=== PATIENT | male | born 1980 | race Caucasian/White ===

== ENCOUNTER 2022-10-02 08:18 | Day surgery (SDC) | payer OTHER ==
[2022-10-02] VITALS (10 sets, daily range): BP systolic 94–120; BP diastolic 63–82; PULSE 47–56; TEMP 98.3
[~2022-10-02] VITALS: Ht 177.8 cm; Wt 93.4 kg
[2022-10-02] MEDS ORDERED: TOPROL XL 25MG25 MG PO (08:41)
[2022-10-02] MEDS ORDERED: ASPIRIN E.C. 8181 MG PO (08:41)
[2022-10-02] MEDS ORDERED: PRIL40 PO (08:41)
[2022-10-02 09:02] LABS: HEMATOCRIT 45.4 % (42.0-52.0); HEMOGLOBIN 15.8 g/dl (13.5-18.0); MEAN CELL VOLUME 87 fl (80.0-100.0); MEAN CORPUSCULAR HEMOGLOBIN 30 pg (27-31); MEAN CORPUSCULAR HGB CONC 35 g/dl (33.0-37.0); MEAN PLATELET VOLUME 9.1 fl (7.4-10.4); PLATELET COUNT 264 K/mm3 (130-400); RED BLOOD COUNT 5.25 M/mm3 (4.20-5.60); REDCELL DISTRIBUTION WIDTH-CV 12.6 % (11.5-14.5)
[2022-10-02 09:11] LABS: PROTHROMBIN TIME 11.4 SECONDS (9.7-12.8)
[2022-10-02 09:14] LABS: PARTIAL THROMBOPLASTIN TIME 28.6 SECONDS (26.0-37.0)
[2022-10-02 09:15] LABS: CALCIUM 9.4 mg/dL (8.4-10.2); CREATININE, serum 1.07 mg/dL (0.72-1.25); POTASSIUM 4.1 mmol/L (3.5-4.5)
--- NOTE | 2022-10-02 10:02 | NUR ---
SEE MERGE FOR ALL PIPE LINE WALKER, VITALS, AND INTERVENTIONS.
--- NOTE | 2022-10-02 12:30 | NUR ---
Pt c/o headache. Lights dimmed for comfort. 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
--- NOTE | 2022-10-02 13:33 | NUR ---
DC instructions reviewed with pt and . Both express understanding. Air was removed from TR band in 2 ml increments with no bleeding or complication. Rt radial puncture site dressed with foled 2x2 and bandaid. IV DC'd, site wrapped with coban. Pt is stable on feet to restroom. He ultimatley refused PRN tylenol, stating he will take some at home as headache is tolerable. He has tolerated PO without issue. He will be assisted out to 's car by wheelchair.
== END 2022-10-02 13:40 | disposition home or self-care (01) ==
LOC: COL.CAR 08:18
PROVIDERS: Internal Medicine Cardiovascular Disease
DX: R07.9 Chest pain, unspecified (principal); R06.02 Shortness of breath; Z87.891 Personal history of nicotine dependence; Z82.49 Family history of ischemic heart disease and other diseases of the circulatory system
CPT/HCPCS: C1769; J1644; J2250; J3010; Q9967